=== PATIENT | male | born 1970 | race Caucasian/White ===

== ENCOUNTER 2017-02-06 10:00 | Emergency (ER) | payer BC, OTHER ==
[~2017-02-06] VITALS: Ht 180.3 cm; Wt 65.7 kg
[2017-02-06 10:02] VITALS: BP 110/69
== END 2017-02-06 13:36 | disposition left against medical advice (07) ==
LOC: ED 13:30
DX: R10.9 Unspecified abdominal pain (principal); Z53.21 Procedure and treatment not carried out due to patient leaving prior to being seen by health care provider